=== PATIENT | female | born 1980 | race Caucasian/White ===

== ENCOUNTER 2020-02-13 16:35 | Outpatient (CLI) | payer OTHER, SELFPAY ==
--- NOTE | ~2020-02-13 | XR_ITS ---
EXAMINATION: XR heel LT min 2V DATE: 02/13/2020 17:14 INDICATION: Left heel pain and swelling. TECHNIQUE: 2 views of left calcaneus were obtained. COMPARISON: None. FINDINGS: Bone alignment is normal. No fracture. Joint spaces are well maintained. IMPRESSION: 1. Normal left calcaneus. Reviewed, dictated and finalized at location A. IMPRESSION: 1. Normal left calcaneus.
--- NOTE | ~2020-02-13 | XR_ITS ---
EXAMINATION: XR foot RT min 3V DATE: 02/13/2020 17:15 INDICATION: Right heel pain. TECHNIQUE: 4 views of right foot were obtained. COMPARISON: None. FINDINGS: Bone alignment is normal. No fracture. There is mild osteoarthritis of first metatarsophala ngeal joint. IMPRESSION: 1. Mild osteoarthritis of first metatarsophalangeal joint. Reviewed, dictated and finalized at location A.
--- NOTE | ~2020-02-13 | XR_ITS ---
EXAMINATION: XR heel RT min 2V DATE: 02/13/2020 17:14 INDICATION: Right heel pain and swelling. TECHNIQUE: 2 views of right calcaneus were obtained. COMPARISON: None. FINDINGS: Bone alignment is normal. No fracture. Joint spaces are well maintained. IMPRESSION: 1. Normal right calcaneus. Reviewed, dictated and finalized at location A. IMPRESSION: 1. Normal right calcaneus.
--- NOTE | ~2020-02-13 | XR_ITS ---
EXAMINATION: XR foot LT min 3V DATE: 02/13/2020 17:15 INDICATION: Left heel pain. TECHNIQUE: 4 views of left foot were obtained. COMPARISON: None. FINDINGS: Bone alignment is normal. No fracture. There is mild osteoarthritis of first metatarsophala ngeal joint. IMPRESSION: 1. Mild osteoarthritis of first metatarsophalangeal joint. Reviewed, dictated and finalized at location A.
== END 2020-02-13 16:36 | disposition home or self-care (01) ==
PROVIDERS: PCP Internal Medicine; Visit Provider Internal Medicine
DX: M79.672 Pain in left foot (principal); M79.671 Pain in right foot
CPT/HCPCS: 73630; 73650

== ENCOUNTER 2020-05-31 14:53 | Outpatient (CLI) | payer OTHER, SELFPAY ==
[2020-05-31 15:43] LABS: SARS-CoV-2 Ag Negative (Negative)
== END 2020-05-31 14:54 | disposition home or self-care (01) ==
PROVIDERS: PCP Internal Medicine; Visit Provider Internal Medicine
DX: Z20.822 Contact with and (suspected) exposure to COVID-19 (principal)
CPT/HCPCS: 87426; C9803

== ENCOUNTER 2020-08-19 13:46 | Outpatient (CLI) | payer OTHER, SELFPAY ==
--- NOTE | ~2020-08-19 | XR_ITS ---
EXAMINATION: XR chest 2V EXAM DATE: 08/19/2020 14:25 INDICATION: Chest pain/tightness ant upper center x1wk, SOB, high BP. TECHNIQUE: Frontal and lateral projections of the chest obtained and reviewed. There is no prior syed dy for comparison. FINDINGS: There is mild thoracic dextroscoliosis. The lungs are clear. There are no pleural effusio ns. The cardiomediastinal silhouette is within normal limits. There is no pneumothorax suspected. IMPRESSION: No acute cardiopulmonary findings. Reviewed, dictated and finalized at location A.
[2020-08-19 14:15] LABS: D Dimer 0.39 mg/L (0.19-0.50)
[2020-08-19 14:23] LABS: Add Urine Microscopic? NO; Amylase 44 U/L (25-115); Appearance Urine Clear (Clear); Bilirubin Urine Negative (Negative); Blood Urine Negative (Negative); Color Urine Yellow (Yellow); Creatine Kinase 61 U/L (26-192); Creatine Kinase MB < 0.50 ng/mL (0.00-5.00); Glucose Urine UA Negative (Negative); Ketones Urine Negative (Negative); Leukocyte Esterase Ur Negative (Negative); Lipase 43 U/L (73-393); Nitrate Urine Negative (Negative); Protein Urine Negative (Negative); Specific Grav Ur >= 1.030 (1.010-1.020); Troponin I 5.9 ng/L (0.00-60.4); Urobilinogen Urine 0.2 mg/dL (0.2-1.0)
== END 2020-08-19 13:47 | disposition home or self-care (01) ==
LOC: CHSLAB 13:48
PROVIDERS: PCP Internal Medicine; Visit Provider Nurse Practitioner Family
DX: R07.9 Chest pain, unspecified (principal); K21.9 Gastro-esophageal reflux disease without esophagitis; R30.0 Dysuria
CPT/HCPCS: 36415; 71046; 81003; 82150; 82550; 82553; 83690; 84484; 85380; 87086

== ENCOUNTER 2020-12-19 11:59 | Outpatient (CLI) | payer OTHER, SELFPAY ==
--- NOTE | ~2020-12-19 | XR_ITS ---
XR chest 2V DATE: 12/19/2020 13:12 INDICATION: Cough, chronic congestion. TECHNIQUE: PA and lateral chest COMPARISON: Serial chest radiographic examinations from 08/19/2020 through 01/28/2009 FINDINGS: There is chronic widening of the left superior mediastinum and soft tissue prominence overl vladimir the aortopulmonary window area, obscuring the aortic arch silhouette. CT thorax with IV contrast material would be helpful to more definitively evaluate this area for mediastinal mass, mediastinal fat deposition or vascular anomaly or other abnormality. Normal heart size. The clay[place] appear unremarkable. No pleural effusion or pulmonary vascular congestion or pneumothorax. There is moderate moderate thoracic dextroscoliosis. IMPRESSION: Chronic widening of the left superior mediastinum; consider CT thorax with IV contrast fo r further evaluation Reviewed, dictated and finalized at location B. IMPRESSION: Chronic widening of the left superior mediastinum; consider CT thor ax with IV contrast for further evaluation
--- NOTE | ~2020-12-19 | XR_ITS ---
XR sinus min 3V DATE: 12/19/2020 13:12 INDICATION: Cough. Chronic sinusitis. TECHNIQUE: owen Williamson, lateral, submental vertical views COMPARISON: None FINDINGS: The paranasal sinuses and mastoid air cells appear normally developed and aerated. Normal s rosanne turcica. IMPRESSION: Normal examination Reviewed, dictated and finalized at location B. IMPRESSION: Normal examination
[2020-12-19 13:12] LABS: Basophils Absolute Auto 0.06 K/mm3 (0.00-0.10); Basophils Percent Auto 0.8 % (0.0-1.0); Eosinophils Absolute Auto 0.13 K/mm3 (0.02-0.50); Eosinophils Percent Auto 1.7 % (1.0-6.0); Hematocrit 45.2 % (35.0-49.0); Hemoglobin 14.4 g/dL (12.0-15.0); Immature Granulocyte Absolute 0.03 K/mm3 (0.00-0.00); Immature Granulocyte Percent A 0.4 % (0.0-0.0); Lymphocytes Absolute Auto 2.28 K/mm3 (1.10-4.50); Lymphocytes Percent Auto 29.6 % (18.0-42.0); Mean Corpuscular HGB Conc 31.9 g/dL (32.0-36.0); Mean Corpuscular Volume 87.8 fL (78.0-102.0); Mean Platelet Volume 9.7 fl (9.2-11.8); Monocytes Absolute Auto 0.53 K/mm3 (0.10-0.90); Monocytes Percent Auto 6.9 % (2.0-11.0); Neutrophils Absolute Auto 4.7 K/mm3 (1.7-7.2); Neutrophils Percent Auto 60.6 % (50.0-70.0); Platelet Count Result 438 K/mm3 (150-420); Red Blood Count 5.15 M/mm3 (4.20-5.40); Red Cell Distribution Width 13.8 % (11.6-14.4); White Blood Count 7.7 K/mm3 (4.8-10.8)
[2020-12-19 14:03] LABS: Alanine Aminotransferase 44 U/L (14-59); Albumin Level 4.1 g/dL (3.4-5.0); Alkaline Phosphatase 69 U/L (46-116); Anion Gap 10 mmol/L (8-16); Aspartate Amino Transferase 21 U/L (15-37); Bilirubin,Total 0.3 mg/dL (0.00-1.00); Blood Urea Nitrogen 15 mg/dL (7-18); Calcium 9.4 mg/dL (8.5-10.1); Carbon Dioxide 31 mmol/L (21-32); Chloride 100 mmol/L (98-108); Estimated Glomerular Filt Rate > 60; Glucose 86 mg/dL (70-99); Magnesium 2.1 mg/dL (1.8-2.4); Osmolality Calculated 291 mOsm/kg (285-295); Sodium 141 mmol/L (136-145); Total Protein 7.2 g/dL (6.4-8.2)
[2020-12-19 14:05] LABS: SARS-CoV-2 RNA PCR Negative (Negative)
[2020-12-19 14:31] LABS: Thyroid Stimulating Hormone 1.19 uIU/mL (0.36-3.74)
[2020-12-19 14:37] LABS: CRP < 0.5 mg/dL (0.0-0.9)
[2020-12-22 06:59] LABS: SARS-CoV-2 IgG >20.00 Index (<1.00)
== END 2020-12-19 12:00 | disposition home or self-care (01) ==
LOC: CHSLAB 12:02
PROVIDERS: PCP Internal Medicine; Visit Provider Internal Medicine
DX: J32.9 Chronic sinusitis, unspecified (principal); R05 Cough; I10 Essential (primary) hypertension; R20.0 Anesthesia of skin; Z20.822 Contact with and (suspected) exposure to COVID-19
CPT/HCPCS: 36415; 70220; 71046; 80053; 83735; 84443; 85025; 86140; 86769; C9803; U0003; U0005

== ENCOUNTER 2020-12-27 07:04 | Outpatient (CLI) | payer OTHER, SELFPAY ==
--- NOTE | ~2020-12-27 | CT_ITS ---
EXAMINATION:CT diagnostic chest w con DATE: 12/27/2020 07:46 INDICATION: Chest tightness. Mediastinal widening. TECHNIQUE: Computed tomography (CT) of the chest was performed with 75 mL Omnipaque 350 intravenous c ontrast. Automated exposure control and iterative reconstruction technique were employed. The dose-le ngth product (DLP) was 814.14 mGy-cm. COMPARISON: Chest 2 views 12/19/2020 FINDINGS: Calcified bilateral pulmonary nodules and calcified hilar and mediastinal lymph nodes are c onsistent with old granulomatous disease. No pleural effusion. The heart size is normal. No pericardi al effusion. There is a small sliding hiatal hernia. Mediastinal lipomatosis is noted. There is thora cic dextroscoliosis and mild spondylosis. IMPRESSION: 1. Mediastinal lipomatosis, which correlates with the mediastinal widening seen on radiographs. 2. Small sliding hiatal hernia. Reviewed, dictated and finalized at location A.
== END 2020-12-27 07:05 | disposition home or self-care (01) ==
LOC: CHSIMG 07:05
PROVIDERS: PCP Internal Medicine; Visit Provider Internal Medicine
DX: J98.59 Other diseases of mediastinum, not elsewhere classified (principal)
CPT/HCPCS: 71260; Q9967

== ENCOUNTER 2021-01-01 11:29 | Outpatient (CLI) | payer OTHER, SELFPAY ==
--- NOTE | ~2021-01-01 | XR_ITS ---
XR foot LT min 3V DATE: 01/01/2021 11:46 INDICATION: Left second toe injury, bruising and swelling TECHNIQUE: 4 views of left foot COMPARISON: None FINDINGS: There is an apparent proximally and dorsally displaced small cortical avulsion fracture of the dorsal base of the distal phalanx of the second digit. No other fracture or dislocation. Mild osteoarthritis at the first metatarsophalangeal joint. IMPRESSION: Proximally and dorsally displaced small cortical avulsion fracture from the dorsal base o f the distal phalanx of the second digit Reviewed, dictated and finalized at location A. IMPRESSION: Proximally and dorsally displaced small cortical avulsion fracture from the dorsal base of the distal phalanx of the second digit
== END 2021-01-01 11:30 | disposition home or self-care (01) ==
LOC: CHSIMG 11:31
PROVIDERS: PCP Internal Medicine; Visit Provider Internal Medicine
DX: S99.922A Unspecified injury of left foot, initial encounter (principal)
CPT/HCPCS: 73630

== ENCOUNTER 2021-01-13 10:16 | Outpatient (CLI) | payer OTHER, SELFPAY | END 2021-01-13 10:17 | disposition home or self-care (01) | LOC: CHSCARD 10:18 | PROVIDERS: PCP Internal Medicine; Visit Provider Internal Medicine | DX: R06.00 Dyspnea, unspecified (principal) | CPT/HCPCS: 94060; 94726; 94729 ==

== ENCOUNTER 2021-02-07 09:15 | Outpatient (CLI) | payer OTHER, SELFPAY ==
--- NOTE | ~2021-02-07 | CT_ITS ---
EXAMINATION: CT sinus wo con DATE: 02/07/2021 09:42 INDICATION: Chronic sinusitis. TECHNIQUE: Computed tomography (CT) of the paranasal sinuses was performed without intravenous contra st. The dose-length product was 277.13 mGy-cm. Automated exposure control and iterative reconstructio n technique were employed. COMPARISON: CT dated 10/01/2016 FINDINGS: There is small mucous retention cyst left maxillary sinus. No air-fluid levels. No signific ant mucoperiosteal reaction. Mastoids are pneumatized. No significant nasal septal deviation. Surgica l changes are consistent with resection of the ostiomeatal units. IMPRESSION: 1. Small mucous retention cyst left maxillary sinus. Otherwise, unremarkable CT sinuses. Reviewed, dictated and finalized at location A.
== END 2021-02-07 09:16 | disposition home or self-care (01) ==
LOC: CHSIMG 09:16
PROVIDERS: PCP Internal Medicine; Visit Provider Otolaryngology
DX: J32.9 Chronic sinusitis, unspecified (principal)
CPT/HCPCS: 70486

== ENCOUNTER 2021-06-11 11:02 | Outpatient (CLI) | payer OTHER, SELFPAY ==
[2021-06-11 12:18] LABS: Influenza Control Valid (Valid)
[2021-06-11 12:22] LABS: SARS-CoV-2 Ag Negative (Negative)
[2021-06-11 13:00] LABS: SARS-CoV-2 RNA PCR Negative (Negative)
== END 2021-06-11 11:03 | disposition home or self-care (01) ==
LOC: CHSLAB 11:03
PROVIDERS: PCP Internal Medicine; Visit Provider Internal Medicine
DX: J06.9 Acute upper respiratory infection, unspecified (principal); Z20.822 Contact with and (suspected) exposure to COVID-19
CPT/HCPCS: 87426; 87804; C9803; U0003; U0005

== ENCOUNTER 2022-01-19 08:37 | Outpatient (CLI) | payer OTHER, SELFPAY ==
[2022-01-19 08:54] LABS: Basophils Absolute Auto 0.04 K/mm3 (0.00-0.10); Basophils Percent Auto 0.5 % (0.0-1.0); Eosinophils Absolute Auto 0.14 K/mm3 (0.02-0.50); Eosinophils Percent Auto 1.7 % (1.0-6.0); Hematocrit 43.2 % (35.0-49.0); Hemoglobin 14.4 g/dL (12.0-15.0); Immature Granulocyte Absolute 0.03 K/mm3 (0.00-0.00); Immature Granulocyte Percent A 0.4 % (0.0-0.0); Lymphocytes Absolute Auto 2.19 K/mm3 (1.10-4.50); Lymphocytes Percent Auto 26.3 % (18.0-42.0); Mean Corpuscular HGB Conc 33.3 g/dL (32.0-36.0); Mean Corpuscular Hemoglobin 29.4 pg (27.0-31.0); Mean Corpuscular Volume 88.3 fL (78.0-102.0); Mean Platelet Volume 9.9 fl (9.2-11.8); Neutrophils Absolute Auto 5.4 K/mm3 (1.7-7.2); Neutrophils Percent Auto 65.1 % (50.0-70.0); Platelet Count Result 381 K/mm3 (150-420); Red Blood Count 4.89 M/mm3 (4.20-5.40); Red Cell Distribution Width 13.2 % (11.6-14.4); White Blood Count 8.3 K/mm3 (4.8-10.8)
[2022-01-19 09:00] LABS: Creatinine Urine 153.05 mg/dL (40-278); MALB Creatinine Ratio 8.4 mg/g (0-30); Microalbumin Urine Random < 13.0 mg/L
[2022-01-19 09:11] LABS: Add Urine Microscopic? NO; Appearance Urine Clear (Clear); Bilirubin Urine Negative (Negative); Blood Urine Negative (Negative); Color Urine Light Yellow (Yellow); Glucose Urine UA Negative (Negative); Ketones Urine Negative (Negative); Leukocyte Esterase Ur Negative (Negative); Nitrate Urine Negative (Negative); Protein Urine Negative (Negative); Specific Grav Ur 1.015 (1.010-1.020); Urobilinogen Urine 0.2 mg/dL (0.2-1.0); pH Urine 6.5 (5.0-8.0)
[2022-01-19 09:12] LABS: Hemoglobin A1C 5.9 % (<5.7)
[2022-01-19 09:22] LABS: Alanine Aminotransferase 22 U/L (14-59); Albumin Level 3.8 g/dL (3.4-5.0); Alkaline Phosphatase 63 U/L (46-116); Anion Gap 7 mmol/L (8-16); Aspartate Amino Transferase 14 U/L (15-37); Bilirubin,Total 0.3 mg/dL (0.00-1.00); Blood Urea Nitrogen 14 mg/dL (7-18); Calcium 8.9 mg/dL (8.5-10.1); Carbon Dioxide 31 mmol/L (21-32); Chloride 102 mmol/L (98-108); Cholesterol 263 mg/dL (0-200); Estimated Glomerular Filt Rate > 60; Glucose 111 mg/dL (70-99); HDL Direct 36 mg/dL (40-60); LDL Cholesterol Calculated 160 mg/dL (<130); Osmolality Calculated 291 mOsm/kg (285-295); Potassium 3.8 mmol/L (3.5-5.1); Sodium 140 mmol/L (136-145); Thyroid Stimulating Hormone 2.14 uIU/mL (0.36-3.74); Total Protein 6.9 g/dL (6.4-8.2); Triglycerides 334 mg/dL (0-150)
== END 2022-01-19 08:38 | disposition home or self-care (01) ==
LOC: CHSLAB 08:40
PROVIDERS: PCP Internal Medicine; Visit Provider Internal Medicine
DX: E78.5 Hyperlipidemia, unspecified (principal); R73.03 Prediabetes
CPT/HCPCS: 36415; 80053; 80061; 81003; 82043; 83036; 84443; 85025

== ENCOUNTER 2022-07-28 07:29 | Outpatient (CLI) | payer OTHER, SELFPAY ==
--- NOTE | ~2022-07-28 | XR_ITS ---
Clinical Indication: Hernia, GERD, shortness of breath PA and lateral views of the chest: Comparison: 12/19/2020 Findings: The lungs are clear, without evidence of focal consolidation or pleural effusion. Cardiome diastinal silhouette is within normal limits. Bones and soft tissues are unremarkable. Impression: Normal chest. Reviewed, dictated and finalized at [facility]. Impression: Normal chest.
[2022-07-28 07:49] LABS: Basophils Absolute Auto 0.03 K/mm3 (0.00-0.10); Basophils Percent Auto 0.6 % (0.0-1.0); Eosinophils Absolute Auto 0.03 K/mm3 (0.02-0.50); Eosinophils Percent Auto 0.6 % (1.0-6.0); Hemoglobin 14.8 g/dL (12.0-15.0); Immature Granulocyte Absolute 0.01 K/mm3 (0.00-0.00); Immature Granulocyte Percent A 0.2 % (0.0-0.0); Lymphocytes Absolute Auto 1.57 K/mm3 (1.10-4.50); Lymphocytes Percent Auto 32.4 % (18.0-42.0); Mean Corpuscular HGB Conc 32.9 g/dL (32.0-36.0); Mean Corpuscular Hemoglobin 29.2 pg (27.0-31.0); Mean Corpuscular Volume 88.9 fL (78.0-102.0); Mean Platelet Volume 9.3 fl (9.2-11.8); Monocytes Percent Auto 6.2 % (2.0-11.0); Neutrophils Absolute Auto 2.9 K/mm3 (1.7-7.2); Platelet Count Result 438 K/mm3 (150-420); Red Blood Count 5.06 M/mm3 (4.20-5.40); White Blood Count 4.9 K/mm3 (4.8-10.8)
[2022-07-28 08:16] LABS: Creatinine Urine 136.16 mg/dL (40-278); MALB Creatinine Ratio 9.5 mg/g (0-30); Microalbumin Urine Random < 13.0 mg/L
[2022-07-28 08:20] LABS: Hemoglobin A1C 5.5 % (<5.7)
[2022-07-28 09:21] LABS: Alanine Aminotransferase 25 U/L (14-59); Alkaline Phosphatase 68 U/L (46-116); Anion Gap 6 mmol/L (8-16); Aspartate Amino Transferase 18 U/L (15-37); Bilirubin,Total 0.3 mg/dL (0.00-1.00); Blood Urea Nitrogen 13 mg/dL (7-18); Carbon Dioxide 31 mmol/L (21-32); Chloride 103 mmol/L (98-108); Cholesterol 274 mg/dL (0-200); Estimated Glomerular Filt Rate > 60; Ferritin 51 ng/mL (8-252); Folic Acid 19.1 ng/mL (8.6->20); Free T4 Free Thyroxine 0.96 ng/dL (0.76-1.46); Glucose 145 mg/dL (70-99); HDL Direct 37 mg/dL (40-60); Iron 77 ug/dL (50-170); LDL Cholesterol Calculated 192 mg/dL (<130); Osmolality Calculated 293 mOsm/kg (285-295); Percent Iron Saturation 20 % (12-57); Potassium 4.9 mmol/L (3.5-5.1); Sodium 140 mmol/L (136-145); Thyroid Stimulating Hormone 1.16 uIU/mL (0.36-3.74); Triglycerides 223 mg/dL (0-150); Vitamin B12 353 pg/mL (193-986)
[2022-07-28 10:56] LABS: Calcium 9.3 mg/dL (8.5-10.1)
[2022-08-01 13:15] LABS: Vitamin B1 16 nmol/L (8-30)
[2022-08-01 15:51] LABS: Alpha-Tocopherol 18.5 mg/L (5.7-19.9); Beta-Gamma Tocopherol 2.5 mg/L (<=4.3)
[2022-08-02 14:01] LABS: Vitamin B6 10.7 ng/mL (2.1-21.7)
[2022-08-02 20:03] LABS: Vitamin D 25 Hydroxy 55 ng/mL (30-100)
[2022-08-05 05:49] LABS: Total Triiodothyronine (T3) 125 ng/dL (76-181)
[2022-08-05 18:01] LABS: Vitamin B2 <5.0 nmol/L (6.2-39.0)
== END 2022-07-28 07:30 | disposition home or self-care (01) ==
LOC: CHSLAB 07:33
PROVIDERS: PCP Family Medicine; Visit Provider Nurse Practitioner Adult Health
DX: K21.9 Gastro-esophageal reflux disease without esophagitis (principal); K46.9 Unspecified abdominal hernia without obstruction or gangrene
CPT/HCPCS: 36415; 71046; 80053; 80061; 82043; 82306; 82607; 82728; 82746; 83036; 83540; 83550; 84207; 84252; 84425; 84439; 84443; 84446; 84480; 85025

== ENCOUNTER 2023-06-21 08:09 | Outpatient (CLI) | payer OTHER, SELFPAY ==
[2023-06-21 08:23] LABS: Basophils Absolute Auto 0.04 K/mm3 (0.00-0.10); Basophils Percent Auto 0.4 % (0.0-1.0); Eosinophils Absolute Auto 0.12 K/mm3 (0.02-0.50); Eosinophils Percent Auto 1.3 % (1.0-6.0); Hematocrit 44.8 % (35.0-49.0); Hemoglobin 14.5 g/dL (12.0-15.0); Immature Granulocyte Absolute 0.04 K/mm3 (0.00-0.00); Immature Granulocyte Percent A 0.4 % (0.0-0.0); Lymphocytes Absolute Auto 1.77 K/mm3 (1.10-4.50); Lymphocytes Percent Auto 19.8 % (18.0-42.0); Mean Corpuscular HGB Conc 32.4 g/dL (32.0-36.0); Mean Corpuscular Hemoglobin 28.7 pg (27.0-31.0); Mean Corpuscular Volume 88.5 fL (78.0-102.0); Mean Platelet Volume 9.2 fl (9.2-11.8); Monocytes Absolute Auto 0.69 K/mm3 (0.10-0.90); Monocytes Percent Auto 7.7 % (2.0-11.0); Neutrophils Absolute Auto 6.3 K/mm3 (1.7-7.2); Neutrophils Percent Auto 70.4 % (50.0-70.0); Platelet Count Result 394 K/mm3 (150-420); Red Blood Count 5.06 M/mm3 (4.20-5.40); Red Cell Distribution Width 12.8 % (11.6-14.4); White Blood Count 8.9 K/mm3 (4.8-10.8)
[2023-06-21 08:35] LABS: Hemoglobin A1C 5.7 % (<5.7)
[2023-06-21 08:55] LABS: Alanine Aminotransferase 16 U/L (14-59); Albumin Level 3.6 g/dL (3.4-5.0); Alkaline Phosphatase 66 U/L (46-116); Anion Gap 4 mmol/L (8-16); Aspartate Amino Transferase 15 U/L (15-37); Bilirubin,Total 0.5 mg/dL (0.00-1.00); Blood Urea Nitrogen 16 mg/dL (7-18); Carbon Dioxide 35 mmol/L (21-32); Chloride 99 mmol/L (98-108); Cholesterol 241 mg/dL (0-200); Estimated Glomerular Filt Rate > 60; Glucose 119 mg/dL (70-99); HDL Direct 40 mg/dL (40-60); LDL Cholesterol Calculated 176 mg/dL (<130); Osmolality Calculated 288 mOsm/kg (285-295); Potassium 3.7 mmol/L (3.5-5.1); Sodium 138 mmol/L (136-145); Total Protein 6.5 g/dL (6.4-8.2); Triglycerides 125 mg/dL (0-150)
== END 2023-06-21 08:10 | disposition home or self-care (01) ==
LOC: CHSLAB 08:11
PROVIDERS: PCP Family Medicine; Visit Provider Family Medicine
DX: F90.9 Attention-deficit hyperactivity disorder, unspecified type (principal); F32.A Depression, unspecified; E78.5 Hyperlipidemia, unspecified; I10 Essential (primary) hypertension; E66.9 Obesity, unspecified; R73.01 Impaired fasting glucose
CPT/HCPCS: 36415; 80053; 80061; 83036; 85025

== ENCOUNTER 2023-08-18 04:58 | Emergency (ER) | payer OTHER, SELFPAY ==
--- NOTE | ~2023-08-18 | CT_ITS ---
Clinical Indication: Chest pain CT Scan of the Chest with Contrast: Technique: Contiguous sections were acquired throughout the chest after intravenous administration of 100 cc of Omnipaque 350. Dose reduction technique was used on this scan by utilizing automated expos ure control and iterative reconstruction technique. The dose-length product (DLP) was 539.36 mGy-cm. Findings: There is no evidence of any significant mediastinal, hilar or axillary lymphadenopathy. There is no f illing defect in the pulmonary arterial tree to suggest pulmonary embolus. There is no evidence of ao rtic dissection or aneurysm. There is no evidence of pleural or pericardial effusion. 3 mm right lower lobe pulmonary nodule present (axial image 64). Calcified right middle lobe granulom a present. Images through the upper abdomen reveal no abnormalities. No abdominal aortic aneurysm or dissection. Impression: No evidence of pulmonary embolus, aortic dissection, or aortic aneurysm. 3 mm right lower lobe pulmonary nodule. According to Fleischner Society criteria, for a low-risk reena ent, no further follow-up required. For a high-risk patient, consider 12 month follow-up CT. Reviewed, dictated and finalized at [facility]. Impression: No evidence of pulmonary embolus, aortic dissection, or aortic aneurysm. 3 mm right lower lobe pulmonary nodule. According to Fleischner Society criteri a, for a low-risk patient, no further follow-up required. For a high-risk patie nt, consider 12 month follow-up CT.
--- NOTE | ~2023-08-18 | XR_ITS ---
Clinical Indication: Chest pain PA and lateral views of the chest: Comparison: None Findings: The lungs are clear, without evidence of focal consolidation or pleural effusion. Cardiome diastinal silhouette is within normal limits. Bones and soft tissues are unremarkable. Impression: Normal chest. Reviewed, dictated and finalized at location . Impression: Normal chest.
[2023-08-18 04:58] VITALS: BP 135/86; PULSE 103; RESP 20; TEMP 37; O2SAT 99
--- NOTE | 2023-08-18 05:06 | ECG_ITS ---
Measurements Intervals [place] Rate: 95 P: 17 GA: 132 QRS: 42 QRSD: 90 T: 11 QT: 388 QTc: 488 Interpretive Statements SINUS RHYTHM WITH OCCASIONAL SUPRAVENTRICULAR PREMATURE COMPLEXES NONSPECIFIC T-WAVE ABNORMALITY COMPARED TO ECG 12/01/2018 15:20:53 NO SIGNIFICANT CHANGES Electronically Signed On 08-18-2023 12:15:30 CDT by Sarbjit Delgado M.D.
--- NOTE | 2023-08-18 05:11 | ED.CHESTPAIN ---
HPI - Chest Pain General Chief Complaint: Chest Pain <Duke Chavarria MD - Last Filed: 08/18/23 06:18> Stated Complaint: Chest Pain <Duke Chavarria MD - Last Filed: 08/18/23 06:18> Time Seen by Provider: 08/18/23 05:06 <Duke Chavarria MD - Last Filed: 08/18/23 06:18> Source: patient <Duke Chavarria MD - Last Filed: 08/18/23 06:18> Mode of arrival: ambulatory <Duke Chavarria MD - Last Filed: 08/18/23 06:18> Limitations: no limitations <Duke Chavarria MD - Last Filed: 08/18/23 06:18> History of Present Illness HPI narrative: Patient is a 43-year-old female with some left under breast chest pain and left shoulder pain and some back pain. This started yesterday afternoon on her drive home from work. She has been having some gas pains as well With belching. hysterectomy for x-rays. <Duke Chavarria MD - Last Filed: 08/18/23 06:18> MD complaint: chest pain and chest discomfort <Duke Chavarria MD - Last Filed: 08/18/23 06:18> Onset (ago): day(s) (1) <Duke Chavarria MD - Last Filed: 08/18/23 06:18> Timing of current episode: constant <Duke Chavarria MD - Last Filed: 08/18/23 06:18> Prior episodes: No <Duke Chavarria MD - Last Filed: 08/18/23 06:18> Onset: during rest <Duke Chavarria MD - Last Filed: 08/18/23 06:18> Pain location: substernal, left chest and epigastric <Duke Chavarria MD - Last Filed: 08/18/23 06:18> Pain radiation: left arm and left scapula <Duke Chavarria MD - Last Filed: 08/18/23 06:18> Severity: moderate <Duke Chavarria MD - Last Filed: 08/18/23 06:18> Pain scale (0-10): 5 <Duke Chavarria MD - Last Filed: 08/18/23 06:18> Quality: sharp, burning and shooting <Duke Chavarria MD - Last Filed: 08/18/23 06:18> Relieving factors: nothing <Duke Chavarria MD - Last Filed: 08/18/23 06:18> Exacerbating factors: palpation and movement <Duke Chavarria MD - Last Filed: 08/18/23 06:18> Treatment prior to arrival: none <Duke Chavarria MD - Last Filed: 08/18/23 06:18> Risk Factors Coronary artery disease risk factors: hypertension <Duke Chavarria MD - Last Filed: 08/18/23 06:18> Thoracic aortic dissection risk factors: none <Duke Chavarria MD - Last Filed: 08/18/23 06:18> Related Data On Oral Contraceptives: No <Duke Chavarria MD - Last Filed: 08/18/23 06:18> Home Medications: Home Medications Medication Instructions Recorded Confirmed Unable to Obtain Home Medications 08/18/23 08/18/23 <Duke Chavarria MD - Last Filed: 08/18/23 06:18> Allergies/Adverse Reactions: Allergies Allergy/AdvReac Type Severity Reaction Status Date / Time gatifloxacin Allergy Severe ANAPHALAXSI Verified 08/18/23 05:13 S <Duke Chavarria MD - Last Filed: 08/18/23 06:18> Review of Systems Review of Systems: All systems reviewed & are unremarkable except as noted in HPI and below <Duke Chavarria MD - Last Filed: 08/18/23 06:18> Constitutional: Constitutional: Reports no additional constitutional complaints <Duke Chavarria MD - Last Filed: 08/18/23 06:18> Eyes: Eyes: Reports no additional eye complaints <Duke Chavarria MD - Last Filed: 08/18/23 06:18> ENT: Reports system reviewed and no additional complaints, except as documented <Duke Chavarria MD - Last Filed: 08/18/23 06:18> Cardiovascular: Cardiovascular: Reports no additional cardiovascular complaints <Duke Chavarria MD - Last Filed: 08/18/23 06:18> Respiratory: Respiratory: Reports no additional respiratory complaints <Duke Chavarria MD - Last Filed: 08/18/23 06:18> Gastrointestinal: Gastrointestinal: Reports no additional gastrointestinal complaints <Duke Chavarria MD - Last Filed: 08/18/23 06:18> Genitourinary: Genitourinary: Reports no additional female genitourinary complaints <Duke Chavarria MD - Last F
[2023-08-18] MEDS: MAG HYDROX/ALUMINUM HYD/SIMETH 30 ML, PHENobarb/HYOSCY/ATROPINE/SCOP 32.4 MG, LIDOCAINE... PO (05:17)
[2023-08-18 05:35] LABS: Basophils Absolute Auto 0.04 K/mm3 (0.00-0.10); Basophils Percent Auto 0.6 % (0.0-1.0); Eosinophils Absolute Auto 0.14 K/mm3 (0.02-0.50); Hematocrit 42.9 % (35.0-49.0); Immature Granulocyte Absolute 0.02 K/mm3 (0.00-0.00); Immature Granulocyte Percent A 0.3 % (0.0-0.0); Lymphocytes Absolute Auto 2.52 K/mm3 (1.10-4.50); Lymphocytes Percent Auto 35.4 % (18.0-42.0); Mean Corpuscular HGB Conc 32.6 g/dL (32-36); Mean Corpuscular Hemoglobin 29.1 pg (27.0-31.0); Mean Corpuscular Volume 89.2 fL (78.0-102.0); Mean Platelet Volume 9.9 fl (9.2-11.8); Monocytes Absolute Auto 0.67 K/mm3 (0.10-0.90); Monocytes Percent Auto 9.4 % (2.0-11.0); Neutrophils Absolute Auto 3.73 K/mm3 (1.70-7.20); Neutrophils Percent Auto 52.3 % (50.0-70.0); Platelet Count Result 382 K/mm3 (150-420); Red Blood Count 4.81 M/mm3 (4.20-5.40); White Blood Count 7.1 K/mm3 (4.8-10.8)
[2023-08-18 05:42] VITALS: BP 128/83; PULSE 80; RESP 18; O2SAT 98
[2023-08-18 05:48] LABS: D Dimer 0.19 mg/L (0.19-0.50)
[2023-08-18 05:52] LABS: Alanine Aminotransferase 16 U/L (14-59); Albumin Level 3.3 g/dL (3.4-5.0); Alkaline Phosphatase 71 U/L (46-116); Anion Gap 13 mmol/L (4-12); Aspartate Amino Transferase < 10 U/L (15-37); Bilirubin,Total 0.1 mg/dL (0.00-1.00); Blood Urea Nitrogen 17 mg/dL (7-18); Calcium 8.3 mg/dL (8.5-10.1); Carbon Dioxide 26 mmol/L (21-32); Chloride 103 mmol/L (98-108); Estimated CRCL calculation 90 ml/min; Estimated Glomerular Filt Rate > 60; Glucose 172 mg/dL (70-99); Lipase 30 U/L (16-77); NT Pro B Type Natriuretic Pept 44 pg/mL (0-125); Osmolality Calculated 299 mOsm/kg (285-295); Potassium 3.5 mmol/L (3.5-5.1); Sodium 142 mmol/L (136-145); Total Protein 6.2 g/dL (6.4-8.2); Troponin I < 4.0 ng/L (0.00-60.4)
[2023-08-18 06:14] LABS: Appearance Urine Clear (Clear); Bilirubin Urine Negative (Negative); Blood Urine Negative (Negative); Color Urine Light Yellow (Yellow); Glucose Urine UA Trace (Negative); Ketones Urine Negative (Negative); Leukocyte Esterase Ur Negative LEU/UL (Negative); Nitrate Urine Negative (Negative); Protein Urine Negative (Negative); Specific Grav Ur >= 1.030 (1.010-1.020); Urobilinogen Urine 0.2 mg/dL (0.2-1.0)
[2023-08-18 06:17] LABS: Add Urine Microscopic? YES; Bacteria Urine 1+ /hpf; RBC Urine None seen /hpf (0-2); Squamous Epithelial Cell Urine Moderate /hpf (Few); WBC Urine None seen /hpf (0-3)
[2023-08-18 06:32] VITALS: BP 132/84; PULSE 75; RESP 18; O2SAT 99
[2023-08-18 06:39] LABS: Hemoglobin A1C 5.6 % (<5.7)
--- NOTE | 2023-08-18 07:03 | PC.NURSE ---
Report to Anastasiia PHILLIPS
--- NOTE | 2023-08-18 08:30 | ECG_ITS ---
Measurements Intervals [place] Rate: 63 P: 7 MA: 133 QRS: 51 QRSD: 90 T: 18 QT: 439 QTc: 451 Interpretive Statements SINUS RHYTHM COMPARED TO ECG 08/18/2023 04:58:54 NO SIGNIFICANT CHANGES Electronically Signed On 08-18-2023 12:15:35 CDT by Sarbjit Delgado M.D.
[2023-08-18 08:53] LABS: Troponin I < 4.0 ng/L (0.00-60.4)
[2023-08-18 09:25] VITALS: BP 135/88; PULSE 71; RESP 20; TEMP 36.7; O2SAT 100
== END 2023-08-18 09:26 | disposition home or self-care (01) ==
PROVIDERS: Emergency Medicine; Emergency Provider Internal Medicine Critical Care Medicine; PCP Family Medicine
DX: R07.89 Other chest pain (principal); Z87.891 Personal history of nicotine dependence; Z82.49 Family history of ischemic heart disease and other diseases of the circulatory system
CPT/HCPCS: 36415; 71046; 71275; 80053; 81001; 83036; 83690; 83880; 84484; 85025; 85380; 93005; 99284; A9270; Q9967

== ENCOUNTER 2024-06-24 13:40 | Emergency (ER) | payer BC, SELFPAY ==
--- NOTE | 2024-06-24 14:12 | ED.SKABFB ---
HPI - Skin/Abscess/Foreign Bdy General Chief complaint: Skin/Abscess/Foreign Body Stated complaint: HEMORRHOID Time Seen by Provider: 06/24/24 14:25 Source: patient Mode of arrival: ambulatory Limitations: no limitations History of Present Illness HPI narrative: Natividad is a 43-year-old female patient presenting to the clinic today with complaints of a possible hemorrhoid. She reports symptoms started approximately 1 week ago but however she had 4 days of rectal pain and difficulty setting due to the pain. States she had diarrhea last week. Denies any blood in her stool currently Related Data Allergies Allergy/AdvReac Type Severity Reaction Status Date / Time gatifloxacin Allergy Severe Anaphylaxis Verified 06/24/24 14:22 Review of Systems Review of Systems: Pertinent positives per HPI. Patient denies any fever, chills, rash, headache, visual changes, dizziness, cough, runny nose, sore throat, shortness of breath, chest pain, palpitations, nausea, vomiting, diarrhea, constipation, abdominal pain, or any urinary issues. [facility] Family History Family History Father Family history of diabetes mellitus in first degree relative Grandparent Family history of coronary artery disease Mother Family history of malignant neoplasm of breast in first degree relative Social History Social History Smoking status: Former smoker Second hand tobacco smoke exposure: No Smoking end date: 05/17/11 Alcohol intake: current Comments At the time of my signature, I reviewed and agree with the nursing past medical, surgical, social, and family history. There is no relevant family history pertinent to the patient complaint. Exam Narrative: General: Well-developed, well nourished, in no apparent distress. Head: Normocephalic, atraumatic. Cardio: Regular rate and rhythm, s1 and s2 normal, no murmur appreciated. Resp: Clear to auscultation bilaterally, no rhonchi, rales, wheezing or rubs. Abdomen: Soft, pliable, bowel sounds present in all quadrants, non-tender to palpation, no organomegly, no CVAT tenderness. Rectum: Yuly PHILLIPS present for exam. Thrombosed hemorrhoid at 3:00 oclock of the rectum, firm and tender to palpation. Course Course Emergency Course: Portions of this record may have been created with voice recognition software. Level of Care: Express Care Visit Vital Signs Vital signs: Vital Signs Temperature 36.6 C 06/24/24 14:20 Pulse Rate 66 06/24/24 14:20 Respiratory Rate 16 06/24/24 14:20 Blood Pressure 147/82 H 06/24/24 14:20 Pulse Oximetry 99 06/24/24 14:20 Temperature 36.6 C 06/24/24 14:20 Pulse Rate 66 06/24/24 14:20 Respiratory Rate 16 06/24/24 14:20 Blood Pressure 147/82 H 06/24/24 14:20 Pulse Oximetry 99 06/24/24 14:20 Vital signs reviewed MDM - Skin/Abscess/Foreign Bdy MDM Narrative Medical decision making narrative: At the time of visit patient is resting comfortably on the exam table. Patient appears to be nontoxic. Plan: Patient has a thrombosed external hemorrhoid. Prescription for Anusol HC and lidocaine was sent to the pharmacy. Supportive measures were discussed with the patient and they voiced understanding discharge instructions and agrees to treatment plan. Return precautions reviewed Differential Diagnosis Differential diagnosis: Likely other (External nonthrombosed Hemorrhoid, thrombosed hemorrhoid, rectal pain, anal fissure) Discharge Plan Discharge Clinical Impression: External hemorrhoid, thrombosed Patient Disposition: Home, Self-Care Condition: Stable Instructions: Antibiotic Form, Thrombosed Hemorrhoid (ED) Additional Instructions: You have a thrombosed external hemorrhoid May do Sitz baths 4 times daily with warm water and Epsom salt May apply cool compresses to the affected area for 20 minutes at a time 20 minutes on/20 minutes off May take Tylenol/Motrin as needed for pain May apply lidocaine to the affected area to help alleviate pain Take medications as prescribed-Anusol HC Follow-up with with PCP and 3-5 days if symptoms persist or sooner if they worsen-may need to see General surgery for removal if not improving Patient Language: Belgian Prescriptions: New hydrocortisone [Procto-Med HC] 2.5 % cream with perineal applicator 1 applic RECTAL BID 7 Days Qty: 30 0RF lidocaine HCl [Lidocaine Viscous] 2 % solution 1 applic mucous membrane QID PRN (Reason: pain) 7 Days Qty: 100 0RF Follow-up/Referrals: PHYSICIAN,WELFARE ELIGIBILITY INTERVIEWER [Primary Care Provider] - Time of Disposition: 14:44 Quality NIHSS Nursing Documentation ED NIHSS nursing documentation: reviewed/agree
[2024-06-24 14:20] VITALS: BP 147/82; PULSE 66; RESP 16; TEMP 36.6; O2SAT 99
== END 2024-06-24 14:46 | disposition home or self-care (01) ==
PROVIDERS: Emergency Provider Nurse Practitioner Family
DX: K64.5 Perianal venous thrombosis (principal); Z87.891 Personal history of nicotine dependence
CPT/HCPCS: 99213; G0463